=== PATIENT | female | born 1970 | race Caucasian/White ===

== ENCOUNTER → 2019-03-13 09:24 | Outpatient (CLI) | payer OTHER, MEDICAID, SELFPAY ==
--- NOTE | 2019-03-13 | DI.MG.S_ITS ---
BILATERAL DIGITAL SCREENING MAMMOGRAM 3D/2D WITH CAD: 03/13/2019 CLINICAL: Routine screening. Family history of breast cancer. Comparison is made to exams dated: 12/14/2017 mammogram and 10/28/2016 mammogram - [facility]. The tissue of both breasts is heterogeneously dense. This may lower the sensitivity of mammography. Current study was also evaluated with a Computer Aided Detection (CAD) system. No significant masses, calcifications, or other findings are seen in either breast. There has been no significant interval change. IMPRESSION: NEGATIVE There is no mammographic evidence of malignancy. A 1 year screening mammogram is recommended. This exam was interpreted at Station ID: [id number]. NOTE: For mammograms, a report in lay terms will be sent to the patient. Approximately 15% of breast malignancies will not be visualized mammographically. In the management of a palpable breast mass, a negative mammogram must not discourage biopsy of a clinically suspicious lesion. Electronically Signed By: Khurram garzon/roland:03/13/2019 12:17:32 letter sent: Normal Exam ACR BI-RADS Category 1: Negative 3341F
--- NOTE | 2019-03-13 | DI.US.S_ITS ---
PROCEDURE: US PELVIC COMPLETE INDICATIONS: IRREGULAR MENSES TECHNIQUE: Real-time scanning was performed of the pelvic organs, with image documentation. Additional endovaginal scanning was necessary due to incomplete visualization of the adnexal and endometrial structures by transabdominal scanning. COMPARISON: [facility] [place], [place], PELVIC COMPLETE, 04/14/2016, 8:51. FINDINGS: Transabdominal scanning: Limited scanning through the kidneys shows no hydronephrosis. No pathologic free abdominal or pelvic fluid. Endovaginal scanning: Uterus: Uterus is normal in size at 9.2 x 5.5 x 6.2 cm. The endometrium measures 11.6 mm in combined thickness. 2 anterior intramural fibroids, largest measuring 2.0 centimeters. Essure contraceptive device not definitively identified. Ovaries: Right ovary surgically absent. Normal left ovary. No adnexal masses. IMPRESSION: 1. Intramural fibroids. 2. Essure contraceptive device not definitively identified. Dictated by: Joe MONTEJO Interpreted: Pam Light MD on 03/13/2019 at 11:59 Approved by: Pam Light M.D. on 03/13/2019 at 15:15
== END ==
PROVIDERS: PCP Family Medicine; Visit Provider Nurse Practitioner Family
DX: Z12.31 Encounter for screening mammogram for malignant neoplasm of breast (principal); Z80.3 Family history of malignant neoplasm of breast; N92.6 Irregular menstruation, unspecified; D25.1 Intramural leiomyoma of uterus
CPT/HCPCS: 76856; 77063; 77067

== ENCOUNTER → 2020-01-01 09:59 | Outpatient (CLI) | payer OTHER, MEDICAID, SELFPAY ==
--- NOTE | 2020-01-01 | DI.US.S_ITS ---
PROCEDURE: US PELVIC COMPLETE INDICATIONS: RT LOWER QUADRANT PAIN TECHNIQUE: Real-time scanning was performed of the pelvic organs, with image documentation. Additional endovaginal scanning was necessary due to incomplete visualization of the adnexal and endometrial structures by transabdominal scanning. COMPARISON: [facility], , PELVIC COMPLETE, 03/13/2019, 10:08. [facility], , PELVIC COMPLETE, 04/14/2016, 8:51. FINDINGS: Transabdominal scanning: Limited scanning through the kidneys shows no hydronephrosis. No pathologic free abdominal or pelvic fluid. Endovaginal scanning: Uterus: Uterus is normal in size at 5.0 x 5.6 x 9.7 cm, retroverted. The endometrium measures 9.7 mm in combined thickness. Mildly heterogeneous myometrial echotexture is present and note is made of a midline anterior intramural 2.1 x 2.0 x 2.2 cm fibroid. At the cervix scattered nabothian cysts are present. Ovaries: The right ovary has been previously resected, left ovary measures 3.5 x 2.4 x 2.1 cm and appears free of cystic or solid mass lesions. A follicular cyst on the left measures up to 1.7 cm. IMPRESSION: The right ovary is absent, the left ovary appears normal. There is no evidence of abnormal free fluid throughout the peritoneal space visualized. Clinical concern is present for possible appendicitis followup by CT scanning may become necessary. No sonographic evidence of acute appendicitis was found by this examination but a normal or abnormal appendix could not be located. Dictated by: Lion Ramos M.D. on 01/01/2020 at 16:07 Approved by: Lion Ramos M.D. on 01/01/2020 at 16:11
== END ==
PROVIDERS: PCP Family Medicine; Referring Provider Nurse Practitioner Family; Visit Provider Nurse Practitioner Family
DX: R10.31 Right lower quadrant pain (principal); N83.02 Follicular cyst of left ovary; D25.1 Intramural leiomyoma of uterus; N88.8 Other specified noninflammatory disorders of cervix uteri; Z90.721 Acquired absence of ovaries, unilateral
CPT/HCPCS: 76830; 76856

== ENCOUNTER → 2022-03-09 11:29 | Outpatient (CLI) | payer OTHER, MEDICAID, SELFPAY ==
--- NOTE | 2022-03-09 | DI.MG.S_ITS ---
BILATERAL DIGITAL SCREENING MAMMOGRAM 3D/2D WITH CAD: 03/09/2022 CLINICAL: Routine screening. Family history of breast cancer. Comparison is made to exams dated: 03/13/2019 mammogram, 12/14/2017 mammogram, and 10/28/2016 mammogram - [facility]. The tissue of both breasts is heterogeneously dense. This may lower the sensitivity of mammography. Current study was also evaluated with a Computer Aided Detection (CAD) system. No significant masses, calcifications, or other findings are seen in either breast. There has been no significant interval change. IMPRESSION: NEGATIVE There is no mammographic evidence of malignancy. A 1 year screening mammogram is recommended. This exam was interpreted at Station ID: [id number]. NOTE: For mammograms, a report in lay terms will be sent to the patient. Approximately 15% of breast malignancies will not be visualized mammographically. In the management of a palpable breast mass, a negative mammogram must not discourage biopsy of a clinically suspicious lesion. Electronically Signed By: Case Solomon acr/roland:03/09/2022 12:30:56 letter sent: Normal Exam ACR BI-RADS Category 1: Negative 3341F
== END ==
PROVIDERS: PCP Nurse Practitioner Family; Referring Provider Family Medicine; Visit Provider Family Medicine
DX: Z12.31 Encounter for screening mammogram for malignant neoplasm of breast (principal); Z80.3 Family history of malignant neoplasm of breast
CPT/HCPCS: 77063; 77067